=== PATIENT | male | born 2000 | race Caucasian/White ===

== ENCOUNTER 2021-10-18 21:38 | Emergency (ER) | payer SELFPAY ==
[~2021-10-18] VITALS: Ht 175.3 cm; Wt 59.1 kg
[~2021-10-18 21:38] MED LIST: AMOXICILLIN 50500 MG PO; CLARITIN 1010 MG/TAB PO; FLONASE NASAL S16 GM NS
[2021-10-18 22:02] LABS: COLLECTION METHOD CLEAN CATCH
[2021-10-18 22:12] LABS: PH 6 (5-8); SQUAMOUS EPITHELIAL None Seen /hpf (0-10); URINE APPEARANCE Clear (CLEAR/HAZY); URINE BACTERIA None Seen (NONE SEEN); URINE BILIRUBIN Negative (NEGATIVE); URINE BLOOD 1+ (NEGATIVE); URINE COLOR Colorless (YELLOW); URINE GLUCOSE Negative (NEGATIVE); URINE KETONE Negative (NEGATIVE); URINE LEUKOCYTE ESTERASE Negative (NEGATIVE); URINE NITRATE Negative (NEGATIVE); URINE PROTEIN(semi-quant) Negative (NEGATIVE); URINE RBC 0-2 /hpf (0-2); URINE UROBILINOGEN Negative (NEGATIVE)
[2021-10-18 23:01] VITALS: BP 129/78; PULSE 74; TEMP 97.9
[2021-10-18 23:27] LABS: HIV 1/2 Antibodies Non-Reactive; HIV-1p24 Antigen Non-Reactive
== END 2021-10-18 22:30 | disposition home or self-care (01) ==
LOC: COL.ER 21:38
PROVIDERS: Emergency Medicine
DX: N48.89 Other specified disorders of penis (principal); J45.909 Unspecified asthma, uncomplicated; Z79.51 Long term (current) use of inhaled steroids